=== PATIENT | male | born 1970 | race Hispanic/Latino ===

== ENCOUNTER → 2016-02-23 | Outpatient (CLI) | payer BC | LOC: GMAB 10:57 | PROVIDERS: ATTEND Family Medicine | DX: Z00.01 Encounter for general adult medical examination with abnormal findings (principal); E11.40 Type 2 diabetes mellitus with diabetic neuropathy, unspecified ==

== ENCOUNTER → 2016-08-09 | Outpatient (CLI) | payer BC | END | disposition home or self-care (01) | LOC: GMAB 10:35 | PROVIDERS: ATTEND Family Medicine | DX: M79.1 Myalgia (principal) ==